=== PATIENT | female | born 1960 | race Caucasian/White ===

== ENCOUNTER 2017-02-28 08:40 | Day surgery (SDC) | payer BC ==
[~2017-02-28 08:40] MED LIST: Lactated Ringers 1,000 ML IV SCH; Lidocaine 1%/Sod Bicarbonate in NS 8.4% 1 ML Syringe PRN; Propofol 200 MG/20 ML SDV ONE; Sodium Chloride 0.9% 10 ML Syringe FLUSH PRN; fentaNYL 100 MCG/2 ML SDV ONE
--- NOTE | 2017-02-28 09:01 | PCM.PREANE ---
Preanesthetic Assessment - Procedure Proposed Procedure: Screening Colonoscopy - Anesthesia/Transfusion/Family Hx Anesthesia History: No Prior Anesthesia Family History of Anesthesia Reaction: No Intubation History: Unknown - Review of Systems General: No Symptoms Pulmonary: No Symptoms Cardiovascular: No Symptoms Gastrointestinal: No Symptoms Neurological: No Symptoms Other: Reports: None - Physical Assessment NPO Status Date: 02/27/2071 NPO Status Time: 22:00 Pulse: 87 O2 Sat by Pulse Oximetry: 97 Respiratory Rate: 16 Blood Pressure: 131/72 Temperature: 36.7 C Weight: 58 kg ASA Class: 2 Mental Status: Alert & Oriented x3 Airway Class: Mallampati = 3 Dentition: Reports: Normal Dentition Thyro-Mental Finger Breadths: 2 Mouth Opening Finger Breadths: 3 ROM/Head Extension: Full Lungs: Clear to Auscultation, Normal Respiratory Effort Cardiovascular: Regular Rate, Regular Rhythm - Allergies Allergies/Adverse Reactions: Allergies Allergy/AdvReac Type Severity Reaction Status Date / Time No Known Allergies Allergy Verified 02/27/17 11:20 - Anesthesia Plan Pre-Op Medication Ordered: None - Acknowledgements Anesthesia Type Planned: MAC Pt an Appropriate Candidate for the Planned Anesthesia: Yes Alternatives and Risks of Anesthesia Discussed w Pt/Guardian: Yes Pt/Guardian Understands and Agrees with Anesthesia Plan: Yes PreAnesthesia Questionnaire Cardiovascular History: Reports: High Cholesterol Gastrointestinal History: Reports: GERD, Hemorrhoids - SUBSTANCE USE Smoking Status *Q: Never Smoker Recreational Drug Use History: No - HOME MEDS Home Medications: Home Meds Calcium Carbonate/Vitamin D3 [Calcium 600-Vit D3 500 Softgel] 1 cap PO DAILY [History] Simvastatin [Zocor] 20 mg PO BEDTIME 02/27/17 [History] Ubidecarenone [Co Q-10] 1 cap PO DAILY 02/27/17 [History] - CURRENT (IN HOUSE) MEDS Current Meds: Current Medications Lactated Ringer's (Ringers, Lactated) 1,000 mls @ 125 mls/hr IV ASDIRECTED JACOBO Stop: 02/28/17 23:00 Lidocaine/Sodium Bicarbonate (Buffered Lidocaine 1% In Ns 8.4%) 0.25 ml .XX ONETIME PRN PRN Reason: Prior to IV Start Stop: 02/28/17 18:00 Sodium Chloride (Saline Flush) 10 ml FLUSH ASDIRECTED PRN PRN Reason: Keep Vein Open Stop: 02/28/17 18:00 Discontinued Medications Fentanyl (Sublimaze) Confirm Administered Dose 100 mcg .ROUTE .STK-MED ONE Stop: 02/28/17 07:31 Propofol (Diprivan 20 Ml) Confirm Administered Dose 200 mg .ROUTE .STK-MED ONE Stop: 02/28/17 07:31
--- NOTE | 2017-02-28 10:44 | PCM.OPNOTE ---
- General Post-Op/Procedure Note Date of Surgery/Procedure: 02/28/17 Operative Procedure(s): Colonoscopy Findings: 1. Anal tags 2. Small external hemorrhoid thrombosed 3. Internal hemorrhoids Pre Op Diagnosis: Screening colonoscopy Post-Op Diagnosis: 1. Anal tags. 2. Small external/internal hemorrhoids Anesthesia Technique: MAC, Moderate Sedation Primary Surgeon: Esdras Baker Pathology: None EBL in mLs: 0 Complications: None Condition: Good Free Text/Narrative:: After adequate IV sedation and analgesia was obtained with monitoring the patient was placed on her left side. Perianal inspection and digital rectal examination revealed the perianal tags as well as the internal and external hemorrhoids which were uncomplicated. A lubricated colonoscope was inserted into the rectum and advanced to the cecum without difficulty. The bowel preparation was adequate. The ascending colon cecum transverse and descending colons were endoscopically normal with no mass lesions seen. The sigmoid was unremarkable as well. The proximal rectum was normal. In the retroflexed view the hemorrhoids were seen and were uncomplicated. Photographs were taken for the patient and for the record. Air was removed as I finished the procedure which she tolerated well.
--- NOTE | 2017-02-28 10:44 | PCM48HPAN ---
Post Anesthesia Note - EVALUATION WITHIN 48HRS OF ANESTHETIC Vital Signs in Normal Range: Yes Patient Participated in Evaluation: Yes Respiratory Function Stable: Yes Airway Patent: Yes Cardiovascular Function Stable: Yes Hydration Status Stable: Yes Pain Control Satisfactory: Yes Nausea and Vomiting Control Satisfactory: Yes Mental Status Recovered: Yes
[2017-02-28 10:50] VITALS: BP 111/55
[2017-02-28] MEDS ORDERED: Lidocaine 1% 4 ML ONE (10:50)
== END 2017-02-28 11:20 | disposition home or self-care (01) ==
LOC: JD.SDS 08:40
PROVIDERS: ATTEND Surgery
DX: Z12.11 Encounter for screening for malignant neoplasm of colon (principal); K64.8 Other hemorrhoids; K64.5 Perianal venous thrombosis; K64.4 Residual hemorrhoidal skin tags; K21.9 Gastro-esophageal reflux disease without esophagitis; E78.2 Mixed hyperlipidemia; Z79.899 Other long term (current) drug therapy; Z98.890 Other specified postprocedural states
CPT/HCPCS: 45378; J3010; J7120; 00810; J2704

== ENCOUNTER 2023-01-25 06:59 | Day surgery (SDC) | payer BC ==
[~2023-01-25 06:59] MED LIST changes: -Lidocaine 1%/Sod Bicarbonate in NS 8.4% 1 ML Syringe PRN; +Midazolam 1 MG/ML 2 ML SDV ONE; +Sodium Chloride 0.9% 10 ML Syringe FLUSH SCH; -fentaNYL 100 MCG/2 ML SDV ONE
[2023-01-25 09:39] VITALS: BP 115/60; PULSE 68
== END 2023-01-25 09:15 | disposition home or self-care (01) ==
LOC: JD.SDS 06:59
PROVIDERS: ATTEND Specialist
DX: R19.5 Other fecal abnormalities (principal); K64.4 Residual hemorrhoidal skin tags; K21.9 Gastro-esophageal reflux disease without esophagitis; I10 Essential (primary) hypertension; E78.00 Pure hypercholesterolemia, unspecified; E11.9 Type 2 diabetes mellitus without complications; E78.2 Mixed hyperlipidemia; Z79.84 Long term (current) use of oral hypoglycemic drugs; Z79.899 Other long term (current) drug therapy
CPT/HCPCS: 45378; J2250; J2704; J7120